=== PATIENT | female | born 1955 | race Caucasian/White ===

== ENCOUNTER 2021-02-15 05:36 | Day surgery (SDC) | payer OTHER ==
[2021-02-13 16:05] VITALS: BMI 32.9
[2021-02-15] MEDS ORDERED: BUPIVACAINE HCL 200 ML ONE (10:21)
[2021-02-15] MEDS ORDERED: MIDAZOLAM HCL 2 MG/2 ML SINGLE DOSE VIAL ONE ×3 (10:22→11:24)
[2021-02-15] MEDS ORDERED: PROPOFOL 20 ML ONE (11:24)
[2021-02-15] MEDS ORDERED: ceFAZolin 2 GRAM PREMIX BAG IVPB ONE (11:45)
[2021-02-15] MEDS ORDERED: ceFAZolin SODIUM 1 GM VIAL ONE (11:47)
[2021-02-15] MEDS ORDERED: ONDANSETRON 4 MG/2 ML VIAL IVPUSH PRN (11:50)
[2021-02-15] MEDS ORDERED: oxyCODONE HCL 5 MG TABLET PO PRN ×2 (11:50→12:59)
[2021-02-15] MEDS ORDERED: LACTATED RINGERS SOLUTION 1,000 ML IV SCH (12:00)
[2021-02-15 16:09] VITALS: BP 141/74; PULSE 62; TEMP 97.8
== END 2021-02-15 15:10 | disposition home or self-care (01) ==
LOC: JASU-SURG 05:36
PROVIDERS: ATTEND Orthopaedic Surgery
PROC: 0RNJ4ZZ Release Right Shoulder Joint, Percutaneous Endoscopic Approach (ICD-10-PCS; 2021-02-15)
PROC: 0LQ14ZZ Repair Right Shoulder Tendon, Percutaneous Endoscopic Approach (ICD-10-PCS; principal; 2021-02-15 11:00)
PROC: 0RHJ44Z Insertion of Internal Fixation Device into Right Shoulder Joint, Percutaneous Endoscopic Approach (ICD-10-PCS; 2021-02-15 11:00)
DX: M75.121 Complete rotator cuff tear or rupture of right shoulder, not specified as traumatic (principal)
CPT/HCPCS: 29826; 29827; C1713; 94760

== ENCOUNTER 2021-05-15 04:54 | Day surgery (SDC) | payer OTHER ==
[2021-05-12 16:36] VITALS: BMI 31.5
[2021-05-15] MEDS ORDERED: KETAMINE HCL 200 MG/20 ML VIAL ONE (06:54)
[2021-05-15 09:33] VITALS: TEMP 98
[2021-05-15 10:58] VITALS: BP 118/60; PULSE 60
== END 2021-05-15 10:35 | disposition home or self-care (01) ==
LOC: JASU-ENDO 04:54
PROVIDERS: ATTEND Internal Medicine Gastroenterology
PROC: 0DB68ZX Excision of Stomach, Via Natural or Artificial Opening Endoscopic, Diagnostic (ICD-10-PCS; 2021-05-15)
PROC: 0DB98ZX Excision of Duodenum, Via Natural or Artificial Opening Endoscopic, Diagnostic (ICD-10-PCS; principal; 2021-05-15 09:00)
DX: K21.9 Gastro-esophageal reflux disease without esophagitis (principal); K22.9 Disease of esophagus, unspecified; K29.70 Gastritis, unspecified, without bleeding
CPT/HCPCS: 88305-TC; 88342-TC